=== PATIENT | female | born 1980 | race Two or more races ===

== ENCOUNTER 2022-09-01 21:54 | Emergency (ER) | payer OTHER ==
[~2022-09-01] VITALS: Ht 154.9 cm; Wt 65.8 kg
[2022-09-02] MEDS ORDERED: KETO10TA2 PO (03:23)
== END 2022-09-02 03:48 ==
LOC: ER 21:54
DX: N83.209 Unspecified ovarian cyst, unspecified side (principal); R10.2 Pelvic and perineal pain